=== PATIENT | male | born 1965 | race Caucasian/White ===

== ENCOUNTER 2020-03-14 21:03 | Observation (INO) | payer OTHER ==
--- OUTSIDE RECORDS SUMMARY | 2020-03-14 21:05 | XMS REPORT | Clinical Summary ---
:1965 Author Organization [facility] Address [address] [place] [id number] Care Team Providers Name Role Phone Jessica Monte MD Primary Care Provider Allergies Not on File Medications Not on file Active Problems Not on file Social History Tobacco Use Types Packs/Day Years Used Date Never Assessed Sex Assigned at Date Recorded Not on file Last Filed Vital Signs Not on file Plan of Treatment Health Maintenance Due Date Last Done Comments COLONOSCOPY SCREENING 11/04/2015 SHINGLES VACCINES (#1) 11/04/2015 INFLUENZA VACCINE 01/04/2020 Results Not on fileafter 03/14/2019
--- OUTSIDE RECORDS SUMMARY | 2020-03-14 21:06 | XMS REPORT | Continuity of Care Document ---
:[address] [facility] t Address [address] [place] [address] Care Team Providers Name Role Phone Monica Monte MD Primary Care Physician Problems This patient has no known problems. Allergies, Adverse Reactions, Alerts This patient has no known allergies or adverse reactions. Social History Social Habit Start Date Stop Date Quantity Comments Source Sex Assigned At Jad Degroot Medications This patient has no known medications. Procedures This patient has no known procedures. Plan of Care Planned Activity Planned Date Details Comments Source Future Scheduled 2020-01-04 INFLUENZA VACCINE [facility] 00:00:00 [code = INFLUENZA VACCINE] Future Scheduled 2015-11-04 COLONOSCOPY SCREENING [facility] 00:00:00 [code = COLONOSCOPY SCREENING] Future Scheduled 2015-11-04 SHINGLES VACCINES [facility] 00:00:00 (#1) [code = SHINGLES VACCINES (#1)] Results This patient has no known results.
[2020-03-14 21:47] LABS: Absolute Lymphocytes (CBC) 3.3 K/uL (0.7-4.9); Basophils % 0.8 % (0-1.3); Hematocrit 42.7 % (39.6-49.0); Lymphocytes % 39.7 % (15.3-44.8); MPV 8.2 fL (7.6-11.3); RBC Red Blood Cell Count 4.65 M/uL (4.33-5.43)
[2020-03-14 21:51] LABS: Protime INR 1.03
[2020-03-14] MEDS ORDERED: NA CHLORIDE 0.9% 1,000 ML ONE (21:58)
[2020-03-14] MEDS ORDERED: NA CHLORIDE 0.9% 250 ML ONE (21:58)
[2020-03-14] MEDS ORDERED: TETANUS & DIPHTHERIA TOX,ADULT 0.5 ML VIAL ONE (21:59)
[2020-03-14] MEDS ORDERED: CROTALIDAE ANTIVENIM 1 GM VIAL IV ONE (21:59)
[2020-03-14 22:00] LABS: Albumin 4.2 g/dL (3.4-5.0); Bilirubin Total 0.2 mg/dL (0.2-1.0); Potassium 3.6 mmol/L (3.5-5.1); Protein, Total 7.4 g/dL (6.4-8.2)
--- NOTE | 2020-03-14 23:41 | ER ---
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 Coronavirus screen: At this time, the client does not indicate any symptoms associated with coronavirus-19. Ebola Screen: No symptoms or risks identified at this time. Initial Sepsis Screen: Does the patient meet any 2 criteria? No. Patient's initial sepsis screen is negative. Does the patient have a suspected source of infection? No. Patient's initial sepsis screen is negative. Risk Assessment: Do you want to hurt yourself or someone else? Patient reports no desire to harm self or others. Onset of symptoms was March 14, 2020. 21:21 Method Of Arrival: Ambulatory bb 21:21 Acuity: ORALIA 2 bb Triage Assessment: 21:26 Bite description: bite sustained to instep of right foot by a snake, animal bb information: vaccination(s) is not applicable. General: Appears in no apparent distress. Behavior is calm, cooperative. Pain: Complains of pain in right foot Pain currently is 5 out of 10 on a pain scale. Historical: - Allergies: 21:26 No Known Allergies; bb - Home Meds: 21:26 Aspirin Oral [Active]; bb - PMHx: 21:26 CAD; High Cholesterol; bb - PSHx: 21:26 Heart stents; bb - Immunization history:: Adult Immunizations unknown. - Social history:: Smoking status: Patient reports the use of cigarette tobacco products, smokes 1.5 packs per day, Patient uses alcohol, occasionally. Patient/guardian denies using street drugs. Screenin:17 Abuse screen: Denies threats or abuse. Nutritional screening: No deficits noted. jd3 Tuberculosis screening: No symptoms or risk factors identified. Fall Risk Ambulatory Aid- None/Bed Rest/Nurse Assist (0 pts). Gait- Normal/Bed Rest/Wheelchair (0 pts) Mental Status- Oriented to own ability (0 pts). Total Hood Fall Scale indicates No Risk (0-24 pts). Assessment: 21:30 General: Appears in no apparent distress. uncomfortable, Behavior is calm, cooperative, jd3 appropriate for age. Pain: Complains of pain in right foot Quality of pain is described as aching, tender. Neuro: Level of Consciousness is awake, alert, obeys commands, Oriented to person, place, time, situation. Cardiovascular: Denies chest pain, Capillary refill < 3 seconds Patient's skin is warm and dry. Respiratory: Airway is patent Respiratory effort is even, unlabored, Respiratory pattern is regular, symmetrical, Denies cough, shortness of breath. GI: No signs and/or symptoms were reported involving the gastrointestinal system. : No signs and/or symptoms were reported regarding the genitourinary system. EENT: No signs and/or symptoms were reported regarding the EENT system. Derm: Skin is intact, Skin is dry, Skin is normal, Skin temperature is warm Bruising that is dark purple, on dorsum of right foot snake bite noted to the medial side of the dorsum of the right foot. Musculoskeletal: Circulation, motion, and sensation intact. Range of motion: intact in all extremities. 21:33 Reassessment: contacted Poison Control spoke to Dora for case #[id number] who gave snake bb bite protocol: Labs; CBC, Coags, Fibrin, Fibrinogins, D-Dimer Q 4-6 hours x 3. Maintenance fluids and opioids for pain management. Monitor Q 15 minutes, update Tetanus, CroFab if symptoms progress. 22:00 Reassessment: Patient appears in no apparent distress at this time. No changes from jd3 previously documented assessment. Patient and/or family updated on plan of care and expected duration. Pain level reassessed. Patient is alert, oriented x 3, equal unlabored respirations, skin warm/dry/pink. swelling with small amount of progression up the ankle, marked with skin marker. 22:30 Reassessment: Patient appears in no apparent distress at this time. No changes from jd3 previously documented assessment. Patient and/or family updated on plan of care and expected duration. Pain level reassessed. Patient is alert, oriented x 3, equal unlabored respirations, skin warm/dry/pink. CroFab infusing, no change in swelling status at this time. 23:05 Reassessment: Patient appears in no apparent distress at this time. Patient and/or jd3 family updated on plan of care and expected duration. Pain level reassessed. Patient is alert, oriented x 3, equal unlabored respirations, skin warm/dry/pink. CroFab finished, no new swelling noted this time. pt reports no change in pain. denies any other symptoms at this time. 23:44 Reassessment: Patient appears in no apparent distress at this time. Patient and/or jd3 family updated on plan of care and expected duration. Pain level reassessed. Patient is alert, oriented x 3, equal unlabored respirations, skin warm/dry/pink. no new swelling noted at this time, pt denies change in pain status. 03/15 00:53 Reassessment: Patient is alert, oriented x 3, equal unlabored respirations, skin bb warm/dry/pink. edema to right foot appears to be decreasing Patient states feeling better. Patient states symptoms have improved. 01:26 Reassessment: Patient is alert, oriented x 3, equal unlabored respirations, skin bb warm/dry/pink. report called to Isabella KELLOGG for room 404. Vital Signs: 03/14 21:21 BP 139 / 86; Pulse 105; Resp 16 S; Temp 98.1(O); Pulse Ox 99% on R/A; Weight 95.25 kg bb (R); Height 6 ft. 0 in. (182.88 cm) (R); Pain 5/10; 22:12 BP 104 / 69; Pulse 101; Resp 16 S; Pulse Ox 99% on R/A; jd3 23:22 BP 124 / 69; Pulse 87; Resp 17 S; Pulse Ox 96% on R/A; jd3 23:45 BP 116 / 66; Pulse 91; Resp 16 S; Pulse Ox 99% on R/A; jd3 03/15 00:55 BP 124 / 91; Pulse 90; Resp 16 S; Pulse Ox 98% on R/A; Pain 3/10; bb 03/14 21:21 Body Mass Index 28.48 (95.25 kg, 182.88 cm) ED Course: 03/14 21:06 Patient arrived in ED. cf2 21:09 Sloan Cardenas MD is Attending Physician. tw4 21:26 Triage completed. bb 21:26 Arm band placed on Patient placed in an exam room, on a stretcher, on pulse oximetry. bb Family accompanied patient. 21:30 Bed in low position. Call light in reach. Side rails up X 1. Verbal reassurance given. jp3 Pulse ox on. NIBP on. 21:30 Initial lab(s) drawn, by me, sent to lab. Inserted saline lock: 20 gauge in left upper jp3 arm, using aseptic technique. Blood collected. 21:30 Patient maintains SpO2 saturation greater than 95% on room air. jp3 21:43 Cameron Alatorre, VALDEZ is Primary Nurse. jd3 23:40 Heaven Prakash MD is Hospitalizing Provider. tw4 03/15 00:00 Report given to Emma KELLOGG. jd3 00:32 EKG done, by ED staff, reviewed by Sloan Cardenas MD. jd3 00:57 No provider procedures requiring assistance completed. Patient admitted, IV remains in bb place. Administered Medications: 03/14 21:43 CANCELLED (Physician Discretion): CroFab 2 vials IV at bolus once tw4 22:00 Drug: Tetanus-Diphtheria Toxoid Adult 0.5 ml {Theatrical Agent: [employer]. Exp: jd3 08/16/2021. Lot #: [id number]. } Route: IM; Site: left deltoid; 23:00 Follow up: Response: No adverse reaction bb 22:01 Drug: NS 0.9% 1000 ml Route: IV; Rate: 1 bolus; Site: left antecubital; jd3 23:00 Follow up: IV Status: Completed infusion; IV Intake: 1000ml bb 22:03 Drug: CroFab 6 vials Route: IV; Rate: bolus; Site: left antecubital; jd3 23:05 Follow up: Response: No adverse reaction; IV Status: Completed infusion; IV Intake: bb 250ml Intake: 23:00 IV: 1000ml; Total: 1000ml. bb 23:05 IV: 250ml; Total: 1250ml. bb Outcome: 23:40 Decision to Hospitalize by Provider. tw4 03/15 00:57 Condition: stable bb Instructed on the need for admit. 01:26 Admitted to Tele accompanied by tech, via stretcher, room 404, with chart, Report bb called to Radha KELLOGG 01:27 Patient left the ED. bb Signatures: Emma Avina, RN RN bb Cameron Alatorre RN RN jd3 Sloan Cardenas MD MD tw4 Jv Lee jp3 Belia Easley cf2
--- NOTE | 2020-03-14 23:41 | EDPHYS ---
Physician Documentation [facility] Name: Alfonzo Whitley Age: 54 yrs Sex: Male : 1965 Arrival Date: 03/14/2020 Time: 21:06 Bed 16 Private MD: ED Physician Sloan Cardenas HPI: 03/15 00:39 This 54 yrs old Male presents to ER via Ambulatory with complaints of Snake tw4 bite. 00:39 The patient was bitten on the instep of right foot, by a snake. Onset: The tw4 symptoms/episode began/occurred just prior to arrival, today. Animal information: The snake had the markings of a copperhead snake. Associated signs and symptoms: The patient has no apparent associated signs or symptoms. Severity of symptoms: At their worst the symptoms were mild, in the emergency department the symptoms are unchanged. The patient has not experienced similar symptoms in the past. Historical: - Allergies: 03/14 21:26 No Known Allergies; bb - Home Meds: 21:26 Aspirin Oral [Active]; bb - PMHx: 21:26 CAD; High Cholesterol; bb - PSHx: 21:26 Heart stents; bb - Immunization history:: Adult Immunizations unknown. - Social history:: Smoking status: Patient reports the use of cigarette tobacco products, smokes 1.5 packs per day, Patient uses alcohol, occasionally. Patient/guardian denies using street drugs. ROS: 03/15 00:39 Constitutional: Negative for fever, chills, and weight loss, Eyes: Negative for injury, tw4 pain, redness, and discharge, Cardiovascular: Negative for chest pain, palpitations, and edema, Respiratory: Negative for shortness of breath, cough, wheezing, and pleuritic chest pain, Abdomen/GI: Negative for abdominal pain, nausea, vomiting, diarrhea, and constipation, Skin: Negative for injury, rash, and discoloration, Neuro: Negative for headache, weakness, numbness, tingling, and seizure. Exam: 00:39 Constitutional: This is a well developed, well nourished patient who is awake, alert, tw4 and in no acute distress. Head/Face: Normocephalic, atraumatic. Chest/axilla: Normal chest wall appearance and motion. Nontender with no deformity. No lesions are appreciated. Cardiovascular: Regular rate and rhythm with a normal S1 and S2. No gallops, murmurs, or rubs. Normal PMI, no JVD. No pulse deficits. Respiratory: Lungs have equal breath sounds bilaterally, clear to auscultation and percussion. No rales, rhonchi or wheezes noted. No increased work of breathing, no retractions or nasal flaring. Abdomen/GI: Soft, non-tender, with normal bowel sounds. No distension or tympany. No guarding or rebound. No evidence of tenderness throughout. Skin: Warm, dry with normal turgor. Normal color with no rashes, no lesions, and no evidence of cellulitis. Neuro: Awake and alert, GCS 15, oriented to person, place, time, and situation. Cranial nerves II-XII grossly intact. Motor strength 5/5 in all extremities. Sensory grossly intact. Cerebellar exam normal. Normal gait. 00:39 Musculoskeletal/extremity: Extremities: noted in the instep of right foot: bite. Vital Signs: 03/14 21:21 BP 139 / 86; Pulse 105; Resp 16 S; Temp 98.1(O); Pulse Ox 99% on R/A; Weight 95.25 kg bb (R); Height 6 ft. 0 in. (182.88 cm) (R); Pain 5/10; 22:12 BP 104 / 69; Pulse 101; Resp 16 S; Pulse Ox 99% on R/A; jd3 23:22 BP 124 / 69; Pulse 87; Resp 17 S; Pulse Ox 96% on R/A; jd3 23:45 BP 116 / 66; Pulse 91; Resp 16 S; Pulse Ox 99% on R/A; jd3 03/15 00:55 BP 124 / 91; Pulse 90; Resp 16 S; Pulse Ox 98% on R/A; Pain 3/10; bb 03/14 21:21 Body Mass Index 28.48 (95.25 kg, 182.88 cm) bb MDM: 03/14 21:09 Patient medically screened. tw4 03/15 00:45 Differential diagnosis: superficial laceration, tendon injury, vascular injury. Data tw4 reviewed: vital signs, nurses notes. Data interpreted: Pulse oximetry: Interpretation: normal. Test interpretation: by ED physician or midlevel provider: labs. Counseling: I had a detailed discussion with the patient and/or guardian regarding: the historical points, exam findings, and any diagnostic results supporting the discharge/admit diagnosis. Physician consultation: Heaven Prakash MD regarding admission, to the medical/surgical unit. and will see patient in ED. ED course: Pt received 6 vials of crofab. 03/14 21:39 Order name: CBC with Diff tw4 03/14 21:39 Order name: CMP tw4 03/14 21:39 Order name: PT-INR tw4 03/14 21:39 Order name: Ptt, Activated tw4 03/14 21:42 Order name: Fibrinogen bb 03/14 21:42 Order name: D-Dimer bb 03/14 21:43 Order name: IV; Complete Time: 21:44 jd3 03/14 23:49 Order name: Creatine Phosphokinase EDVT 03/15 00:19 Order name: EKG - Nurse/Tech; Complete Time: 00:31 jd3 03/15 00:19 Order name: EKG; Complete Time: 02:30 jd3 EC:02 Rate is 88 beats/min. Rhythm is regular. QRS Turrell is Normal. NH interval is normal. QRS tw4 interval is normal. QT interval is normal. No Q waves. T waves are Normal. No ST changes noted. Clinical impression: Normal ECG. Reviewed by me. Administered Medications: 03/14 21:43 CANCELLED (Physician Discretion): CroFab 2 vials IV at bolus once tw4 22:00 Drug: Tetanus-Diphtheria Toxoid Adult 0.5 ml {Environmental Remediation Consultant: [employer]. Exp: jd3 08/16/2021. Lot #: [id number]. } Route: IM; Site: left deltoid; 23:00 Follow up: Response: No adverse reaction bb 22:01 Drug: NS 0.9% 1000 ml Route: IV; Rate: 1 bolus; Site: left antecubital; jd3 23:00 Follow up: IV Status: Completed infusion; IV Intake: 1000ml bb 22:03 Drug: CroFab 6 vials Route: IV; Rate: bolus; Site: left antecubital; jd3 23:05 Follow up: Response: No adverse reaction; IV Status: Completed infusion; IV Intake: bb 250ml Disposition: 03/14/20 23:40 Hospitalization ordered by eHaven Prakash for Observation. Preliminary diagnosis are Toxic effect of unspecified snake venom, Toxic effect of unspecified snake venom, accidental (unintentional). - Bed requested for Telemetry/MedSurg (observation). - Status is Observation. bb - Condition is Stable. - Problem is new. - Symptoms are unchanged. Signatures: Dispatcher [employer] EDMS Emma Avina RN RN bb Zee Moreno RN RN tl1 Cameron Alatorre RN RN Sloan Epps MD MD tw4 Corrections: (The following items were deleted from the chart) 21:43 21:42 CroFab 2 vials IV at bolus once ordered. tw4 4 03/15 00:52 03/14 23:40 Hospitalization Ordered by Heaven Prakash MD for Observation. Preliminary tl1 diagnosis is Toxic effect of unspecified snake venom; Toxic effect of unspecified snake venom, accidental (unintentional). Bed requested for Telemetry/MedSurg (observation). Status is Observation. Condition is Stable. Problem is new. Symptoms are unchanged. 03/15 01:27 00:52 03/14/2020 23:40 Hospitalization Ordered by Heaven Prakash MD for Observation. bb Preliminary diagnosis is Toxic effect of unspecified snake venom; Toxic effect of unspecified snake venom, accidental (unintentional). Bed requested for Telemetry/MedSurg (observation). Status is Observation. Condition is Stable. Problem is new. Symptoms are unchanged. tl1
[2020-03-15] MEDS ORDERED: ONDANSETRON 4 MG/2 ML VIAL IV PRN (00:32)
[2020-03-15] MEDS ORDERED: MORPHINE 2 MG/ML SYR IV PRN (00:32)
[2020-03-15] MEDS ORDERED: HYDRALAZINE HCL 20 MG/ML VIAL IV PRN (00:34)
[2020-03-15] MEDS ORDERED: LORAZEPAM 0.5 MG TABLET PO PRN (00:34)
--- NOTE | 2020-03-15 00:40 | P.HP ---
Certification for Inpatient Patient admitted to: Observation With expected LOS: <2 Midnights Patient will require the following post-hospital care: None Practitioner: I am a practitioner with admitting privileges, knowledge of patient current condition, hospital course, and medical plan of care. Services: Services provided to patient in accordance with Admission requirements found in Title 42 Section 412.3 of the Code of Federal Regulations Patient History Date of Service: 03/15/20 Reason for admission: snake bite History of Present Illness: 54-year-old male with past medical history of HLD, CAD status post PCI x3 stent in 2017, on daily aspirin, chronic tobacco use admitted after sustaining a snake bite to his right foot iliac today. Patient states he was wearing flip-flops and participating in a backyard garden [employer] when he felt sudden foot pain this evening. He look down and saw a small size copperhead snake mioving away . He had killed the snake and brought it with him . He developed pain as well as swelling of her and the right foot area. He denies any shortness of breath, chest pain, wheezing. On arrival in the ED he was given 6 vials of CroFab. His blood pressure remained stable in the 110s to 120s. Patient states his usual blood pressure normally runs in the 130s to 140s. He stay having persistent pain over the area of the bite. But nursing staff reports slight decrease in the redness 1 hr post CroFab administration. However pain area appeared to have increased. Patient Re pain currently at 3 to 4/10. He has declined pain medication at this time. He is anxious to go outside and smoke. Home medications list reviewed: Yes - Past Medical/Surgical History Has patient received pneumonia vaccine in the past: No Diabetic: No -: HLD - but intolerant of statin -: CAD -on aspirin , s/p PCI x3 stents in 2017 Past Surgical History: Reviewed- Non-Contributory - Family History Family History: Reviewed- Non-Contributory - Social History Smoking Status: Heavy Tobacco smoker (>10 cigarettes/day) Counseled patient to stop smoking for: more than 10 minutes Smoking therapy provided: Yes Patient receptive to therapy: No Alcohol use: Yes CD- Drugs: No Caffeine use: No Place of Residence: Home Review of Systems 10-point ROS is otherwise unremarkable Physical Examination - Physical Exam General: Alert, In no apparent distress, Oriented x3, Cooperative HEENT: Atraumatic, Normocephalic, PERRLA, Mucous membr. moist/pink Neck: 2+ carotid pulse no bruit, JVD not distended, No Thyromegaly Respiratory: Clear to auscultation bilaterally, Normal air movement Cardiovascular: Normal pulses, Regular rate/rhythm, Normal S1 S2 Capillary refill: <2 Seconds Gastrointestinal: Normal bowel sounds, Non-distended, No ascites, No tenderness, No masses Musculoskeletal: Swelling, Tenderness, Other (over medial border of right foot , tiny puctate chaney seen , surronding area of edema , and tenderness marked extending to above the ankle but no erythema noted now but decreasing from across the anterior foot area ) Neurological: Normal speech, Normal strength at 5/5 x4 extr, Normal tone, Sensation intact - Studies Laboratory Data (last 24 hrs) 03/14/20 21:25: PT 12.1, INR 1.03, APTT 35.4 03/14/20 21:25: Sodium 139, Potassium 3.6, BUN 21 H, Creatinine 1.42 H, Glucose 114 H, Total Bilirubin 0.2, AST 26, ALT 42, Alkaline Phosphatase 104 03/14/20 21:25: WBC 8.4, Hgb 15.1, Hct 42.7, Plt Count 325 Assessment and Plan - Problems (Diagnosis) (1) Tobacco abuse Current Visit: Yes Status: Acute (2) Snake bite poisoning Current Visit: Yes Status: Acute (3) HLD (hyperlipidemia) Current Visit: Yes Status: Acute (4) CAD (coronary artery disease) Current Visit: Yes Status: Acute (5) ARF (acute renal failure) Current Visit: Yes Status: Acute Discharge Plan: Home - Advance Directives Does patient have a Living Will: No Does patient have a Durable POA for Healthcare: No - Code Status/Comfort Care Code Status: Full Code Physician Review: Patient Assessed, Agree with Above Assessment and Plan Physician Review Additional Text: # Snake bite -due to presumed copperhead snake bite -s/p crofab ( polyvalent antivenom )given -Given hx of CAD and unexplained elevated creatinine , will obtain CK level -coagulation normal with PT/INR/PTT/DIMER -will admit to observation for close monitoring of vitals and for anaphylaxis reaction from crofab -will start gentle IVF with NS -will elevated right LE to help with edema and pain -start IV morphine prn - pt refusing now -Poison control called by me and I discussed with Toxinologist television repairman Dr Gupta and agreed with above plans can dc in am if stable vitals -will obtain EKG for baseline -repeat coags and CBc later this am # CAD hx - stable , only on Aspirin # HLD 0stable , not on any meds # DVT prop - sc lovenox for now since normal coags # Tobacco cessation-patient declined a nicotine patch, anxious to go out to smoke -counseling done # Dispo- possible home in 12 hrs Time Spent Managing Pts Care (In Minutes): 65
[2020-03-15] MEDS ORDERED: NA CHLORIDE 0.9% 1,000 ML IV SCH (01:00)
[2020-03-15 01:42] VITALS: O2SAT 98
[2020-03-15 02:55] VITALS: BMI 28.5
[2020-03-15 08:04] VITALS: BP 135/75; TEMP 98.5
[2020-03-15] MEDS ORDERED: ASPIRIN EC 81 MG TAB PO SCH (09:00)
[2020-03-15] MEDS ORDERED: ENOXAPARIN 40 MG/0.4 ML SQ SCH (09:00)
[2020-03-15] MEDS ORDERED: NICOTINE 21 MG/PAT TD SCH (09:00)
[2020-03-15 09:24] LABS: Hematocrit 41.9 % (39.6-49.0); Lymphocytes % 24.8 % (15.3-44.8); RBC Red Blood Cell Count 4.58 M/uL (4.33-5.43)
[2020-03-15 09:36] LABS: Protime INR 0.91
[2020-03-15 10:01] LABS: Potassium 3.9 mmol/L (3.5-5.1)
--- NOTE | 2020-03-15 14:15 | P.DS ---
Discharge Date: 03/15/20 Disposition: ROUTINE DISCHARGE Discharge Condition: GOOD Reason for Admission: snake bite Brief History of Present Illness: Patient is a 54-year-old male with past medical history of HLD, CAD status post PCI x3 stent in 2017, on daily aspirin, chronic tobacco use admitted after sustaining a snake bite to his right foot iliac today. Patient states he was wearing flip-flops and participating in a backyard garden [employer] when he felt sudden foot pain this evening. He look down and saw a small size copperhead snake moving away . He had killed the snake and brought it with him . He developed pain as well as swelling of her and the right foot area. He denies any shortness of breath, chest pain, wheezing. On arrival in the ED he was given 6 vials of CroFab. His blood pressure remained stable in the 110s to 120s. Patient states his usual blood pressure normally runs in the 130s to 140s. He stay having persistent pain over the area of the bite. But nursing staff reports slight decrease in the redness 1 hr post CroFab administration. However pain area appeared to have increased. Patient pain currently at 3 to 4/10. He has declined pain medication at this time. He is anxious to go outside and smoke. Hospital Course: Patient is doing much better. Clinically patient is doing well. We spoke with poison Control and they state that he just needs to keep his leg elevated and no other lab testing or medication necessary at this time. There is no cellulitis around the area. Patient looks to be doing well. At this time, patient is stable for discharge home with outpatient follow-up. Vital Signs/Physical Exam: Temp Pulse Resp BP Pulse Ox 98.5 F 83 16 135/75 96 03/15/20 08:00 03/15/20 08:00 03/15/20 08:00 03/15/20 08:00 03/15/20 08:00 General: Alert, In no apparent distress, Oriented x3 Laboratory Data at Discharge: WBC 7.9 K/uL (4.3-10.9) 03/15/20 09:10 Hgb 14.9 g/dL (13.6-17.9) 03/15/20 09:10 Hct 41.9 % (39.6-49.0) 03/15/20 09:10 Plt Count 300 K/uL (152-406) 03/15/20 09:10 PT 10.7 SECONDS (9.5-12.5) 03/15/20 09:10 INR 0.91 03/15/20 09:10 APTT 34.6 SECONDS (24.3-36.9) 03/15/20 09:10 Sodium 140 mmol/L (136-145) 03/15/20 09:10 Potassium 3.9 mmol/L (3.5-5.1) 03/15/20 09:10 BUN 15 mg/dL (7-18) 03/15/20 09:10 Creatinine 0.91 mg/dL (0.55-1.3) 03/15/20 09:10 Glucose 157 mg/dL (74-106) H 03/15/20 09:10 Total Bilirubin 0.2 mg/dL (0.2-1.0) 03/14/20 21:25 AST 26 U/L (15-37) 03/14/20 21:25 ALT 42 U/L (12-78) 03/14/20 21:25 Alkaline Phosphatase 104 U/L (45-117) 03/14/20 21:25 Home Medications: Aspirin Chewable [Aspirin Chewable*] 1 tab PO DAILY 03/15/20 Patient Discharge Instructions: OK TO DC IV AND DC HOME. FOLLOW-UP WITH PRIMARY CARE PROVIDER IN 1-2 WEEKS. KEEP LIKE ELEVATED WHILE SITTING OR LYING DOWN. RETURN TO THE ER IF symptoms worsened. CALL or TEXT DR. CAMILO AT [phone] IF ANY QUESTIONS REGARDING HOSPITAL STAY. PLEASE CALL THE FLOOR AT [phone] IF ANY MEDICATION OR NURSING QUESTIONS. Diet: AHA Activity: Fall precautions Time spent managing pt's care (in minutes): 35
--- NOTE | 2020-03-16 01:44 | CON ---
Date of Consultation: 03/15/2020 Reason For Consultation: Elevated BUN and creatinine. History Of Present Illness: This is a 54-year-old gentleman with significant past medical history of hyperlipidemia; coronary artery disease, status post PTCA; hypertension. The patient was admitted to the hospital with the snake bite. Upon arrival to the hospital, the patient was found to have elevation in BUN and creatinine. For that reason, we have been consulted. The patient denied taking any nonsteroidal. No IV contrast. The patient was started on IV hydration. Past Medical History: 1. Hypertension. 2. Coronary artery disease, status post PTCA. 3. Hyperlipidemia. Past Surgical History: Include PTCA. Family History: Positive for hypertension and coronary artery disease. Social History: Active smoker. Active alcohol. Denies drug abuse. Family History: As above. Review of Systems: Head and Neck: No red eye. No ear pain. GI: No nausea. No vomiting. : No polyuria. No dysuria. No hematuria. Street Department Dispatcher: Not applicable. Respiratory: No shortness of breath. Cardiovascular: No chest pain. Endocrine: No polydipsia. Skin: No rash. Neuro: He has low back pain. Musculoskeletal: He has right foot pain. Physical Examination: VITAL SIGNS: When I saw the patient, blood pressure 135/75, pulse of 83, afebrile. Chest: Clear to auscultation. Heart: S1, S2 regular. Abdomen: Soft, nontender. Extremities: No edema. Demarcation on the right foot where is the snake bite. Neurologic: Alert and oriented x3. Nonfocal. Laboratory Data: Sodium 139, potassium 3.6, bicarb 21, BUN 21, creatinine 1.4, GFR 52, calcium 8.3. H and H 14.9/41.9, eosinophil of 2.2, absolute eosinophil of 200. Repeated lab after hydration, sodium 140, potassium 3.9, bicarb 22, BUN 15, creatinine 0.9, calcium of 8. Current Medications: 1. IV fluid. 2. Aspirin. 3. Lovenox. 4. Hydralazine. 5. Lorazepam. 6. Zofran. Assessment And Plan: 1. Acute kidney injury secondary to prerenal. No sign of hemolysis. No rhabdomyolysis. We reassured the patient. The patient cleared from the renal standpoint for discharge planning. 2. Recovery of the acute kidney injury secondary to dehydration. 3. Hypertension, controlled, optimal. Continue current medication. 4. Snake bite. No other organ injury. We will follow up with primary. Time spent coordinating the care, discuss him with all of our team members including othere home planning consultant salesperson and hospitalist and [id number] with the patient and please go out of 45 min ALLAN Voice ID: [id number] Report ID: [id number] TONY
--- NOTE | 2020-03-16 07:44 | EKG ---
Test Date: 2020-03-15 Test Time: 00:27:36 Basketball Assembler: VADIM MEASUREMENT RESULTS: Intervals: Rate: 88 [place]: 138 QRSD: 90 QT: 364 QTc: 440 [place]: P: 65 [place]: 138 QRS: 56 T: 28 INTERPRETIVE STATEMENTS: Normal sinus rhythm Normal ECG No previous ECG available for comparison Electronically Signed On 03-16-20 07:43:02 CDT by Adalberto Aguirre
== END 2020-03-15 12:07 | disposition home or self-care (01) ==
LOC: ER 21:03 → 4TH 03-15 01:36
PROVIDERS: ADMIT Internal Medicine; ATTEND Hospitalist
DX: T63.091A Toxic effect of venom of other snake, accidental (unintentional), initial encounter (principal); I25.10 Atherosclerotic heart disease of native coronary artery without angina pectoris; Z95.5 Presence of coronary angioplasty implant and graft; Y92.007 Garden or yard of unspecified non-institutional (private) residence as the place of occurrence of the external cause; E78.5 Hyperlipidemia, unspecified; Z79.82 Long term (current) use of aspirin; I10 Essential (primary) hypertension; N17.9 Acute kidney failure, unspecified; E86.0 Dehydration; F17.210 Nicotine dependence, cigarettes, uncomplicated; Z23 Encounter for immunization
CPT/HCPCS: 96365; 93005; 85025 ×2; 80048; 36415; 85384; 82550; 85610 ×2; 85379 ×2; 85730 ×2; 80053; 90471; 90714; 99285; J0840; J1650; J7050; J7030 ×2; G0378 ×2